=== PATIENT | male | born 1960 | race Caucasian/White ===

== ENCOUNTER → 2016-09-26 | Outpatient (CLI) | payer OTHER ==
--- NOTE | 2016-09-26 10:02 | DI ---
HISTORY: Transient cerebral ischemia, unspecified. TECHNIQUE: Sonographic images of the carotids were obtained bilaterally and submitted for interpreta tion. FINDINGS: Both vertebral arteries demonstrate antegrade flow. Right ICA velocity measures 91.7 cm/s. The right CCA measures 115 cm/s. The ICA/CCA ratio is 0.8 The left ICA velocity is 1 20 cm/s. The left CCA velocity is 111 cm/s. The ICA/CCA ratio is 1.08. IMPRESSION: 1. No hemodynamically significant stenosis.
== END ==
LOC: US 08:46
PROVIDERS: ATTEND Family Medicine
DX: G45.9 Transient cerebral ischemic attack, unspecified (principal)
CPT/HCPCS: 93880